=== PATIENT | female | born 2000 | race Two or more races ===

== ENCOUNTER 2024-04-12 21:07 | Emergency (ER) | payer OTHER ==
[~2024-04-12] VITALS: Ht 154.9 cm; Wt 50.3 kg
[2024-04-12] MEDS ORDERED: ONDA4TAB5 PO (21:29)
[2024-04-12] MEDS ORDERED: ONDANSETRON ODT 4 MG TAB.RAPDIS ONE (21:34)
[2024-04-12] MEDS: ONDANSETRON ODT 4 MG TAB.RAPDIS SL ONE (21:36)
[2024-04-12 21:39] VITALS: BP 118/80; TEMP 97.9; O2SAT 99
== END 2024-04-12 21:40 | disposition home or self-care (01) ==
LOC: ER 21:29
DX: U07.1 COVID-19 (principal); R11.2 Nausea with vomiting, unspecified; Z79.899 Other long term (current) drug therapy
CPT/HCPCS: A4606; A4663; Q0162